=== PATIENT | female | born 1980 ===

== ENCOUNTER 2018-11-27 06:43 | Day surgery (SDC) | payer OTHER ==
[2018-11-24 10:53] VITALS: BMI 24.2
[2018-11-27] MEDS ORDERED: Bupivacaine 0.5% Inj(30mL) ONE (07:31)
[2018-11-27] MEDS ORDERED: Lactated Ringer's 1,000 ML IV ONE ×2 (08:00→08:40)
[2018-11-27] MEDS ORDERED: Lidocaine 2% MPF (5 ml) Inj ONE (08:19)
[2018-11-27] MEDS ORDERED: Propofol 10 mg/ml Inj (20 ML) ONE (08:19)
[2018-11-27] MEDS ORDERED: Midazolam 2 MG/2 ML VIAL ONE (08:19)
[2018-11-27] MEDS ORDERED: Rocuronium 10 mg/ml (5 ml) ONE (08:20)
[2018-11-27] MEDS ORDERED: HYDROmorphone 0.5 mg/0.5 ml ISec IVP PRN (09:48)
[2018-11-27 09:57] LABS: BASO % 0.5 % (0.0-2.0); EOS % 0.7 % (0.0-4.0); HEMOGLOBIN 12.5 g/dL (12.0-16.0); LYMPH # 0.8 K/uL (1.0-4.3); LYMPH % 16.3 % (20.0-40.0); MEAN CELL VOLUME 96.5 fl (81.0-99.0); MEAN CORPUSCULAR HEMOGLOBIN 32.7 pg (27.0-31.0); MEAN CORPUSCULAR HGB CONC 33.9 g/dL (33.0-37.0); MEAN PLATELET VOLUME 10.8 fl (7.2-11.7); MONO # 0.3 K/uL (0.0-0.8); MONO % 7.1 % (0.0-10.0); NEUT # 3.5 K/uL (1.8-7.0); NEUT % 75.4 % (50.0-75.0); RBC 3.81 Mil/uL (3.80-5.20); WHITE BLOOD COUNT 4.7 K/uL (4.8-10.8)
[2018-11-27] MEDS ORDERED: Lactated Ringer's 1,000 ML IV SCH (10:00)
--- NOTE | 2018-11-27 10:38 | CP.SDSHP ---
Same Day Surgery H & P - Allergies Allergies: Allergies No Known Allergies Allergy (Verified 11/27/18 07:16) - Physical Exam Vital Signs: Vital Signs 11/27/18 11/27/18 11/27/18 07:37 09:45 10:00 Temperature 98.9 F 96.6 F L 96.9 F L Pulse Rate 65 85 58 L Respiratory 18 18 18 Rate Blood Pressure 128/65 123/72 113/63 O2 Sat by Pulse 99 100 100 Oximetry 11/27/18 10:10 Temperature 97.1 F L Pulse Rate 58 L Respiratory 18 Rate Blood Pressure 110/69 O2 Sat by Pulse 100 Oximetry Short Stay Discharge - Short Stay Discharge Admitting Diagnosis/Reason for Visit: N83.291/ Z30.2/ Referrals: Eric Duncan MD [Primary Care Provider] - Progress Note/Discharge Note with Instructions: Patient doing well pain well controlled Patient cleared for discharge Prescription for Percocet and Motrin provided Patient to follow-up in the office in 1 week
--- NOTE | 2018-11-27 12:44 | OP ---
PROCEDURE DATE: 11/27/2018 PREOPERATIVE DIAGNOSES: Right ovarian complex cyst. Intrauterine at 39 weeks and history of previous delivery. POSTOPERATIVE DIAGNOSIS: Right ovarian complex cyst. OPERATION PERFORMED: Bilateral tubal ligation. SURGEON: Hilary Shepherd MD CIGAR HEAD PUNCHER: Katie Garcia MD TYPE OF ANESTHESIA: General. ANESTHESIA ADMINISTERED BY: Dr. Carpenter. ESTIMATED BLOOD LOSS: Minimal. URINE OUTPUT: Marrero catheter put out approximately 50 mL. INTRAVENOUS FLUID INTAKE: The patient received 1 L of D5 LR intraoperatively. COMMENTS: Preoperatively, the patient was noted to have a 4 cm complex cyst. The patient was brought to the OR for the indication of ovarian cystectomy. The patient also desired tubal ligation. Upon initial survey of the abdomen, both ovaries appeared normal. There were pictures taken for documentation and we proceeded with the bilateral tubal ligation. DESCRIPTION OF PROCEDURE: After informed consent was obtained, the patient was taken to the operating room where she was given general anesthesia. She was then placed in the [place] stirru, prepped and draped in the normal sterile fashion. Attention was then turned to the vagina where a weighted speculum was inserted in the vagina. The cervix was visualized and grasped with a single-tooth tenaculum. The cervix was then gently dilated and the HUMI uterine manipulator was inserted in the uterine cavity as a means to manipulate the uterus. Attention was then turned to the urethra where Marrero catheter was inserted to monitor the patient's urinary output. I then proceeded to the abdomen where an 8-mm incision was made in the umbilical fold. A Veress needle was then introduced in the abdominal cavity and the abdomen was insufflated to 15 mmHg. An 8-mm robotic port was introduced into the abdominal cavity. Placement was confirmed with the laparoscope. The abdomen was then surveyed with the findings noted above. We then proceeded to put an 8-mm port in the left lower quadrant approximately 3 cm superior to the left anterior iliac crest. Marcaine was infused, and an 8-mm incision was made and robotic port was introduced under direct visualization. The LigaSure device was then used. We identified the left ovarian tube. It was serially coagulated and transected with LigaSure. A similar procedure was performed on the left. All instruments were then removed from the abdomen. The skin incisions repaired with 3-0 Biosyn and Dermabond. All sponge, lap, needle, and instrument counts were correct x2, and the patient was taken to recovery room in awake and stable condition. Dr. Garcia was the cleaner assistant. She helped creating exposure, helped with visibility and closure of the patient. Hilary Shepherd MD
[2018-11-27] MEDS ORDERED: Oxycodone/Acetaminophen 5/325 mg Tab PO PRN (12:45)
[2018-11-27] MEDS ORDERED: Oxycodone/Acetaminophen 5/325 mg Tab PO ONE (13:01)
[2018-11-27 16:56] VITALS: RESP 18
[2018-11-27 16:57] VITALS: BP 100/60; PULSE 65; TEMP 97.8; O2SAT 99
== END 2018-11-27 14:10 | disposition home or self-care (01) ==
LOC: H.OPSURG 06:43
PROVIDERS: ATTEND Obstetrics & Gynecology Gynecology
DX: N83.291 Other ovarian cyst, right side (principal); Z30.2 Encounter for sterilization
CPT/HCPCS: 36415; 58670; 85025; 86850; 86900; J0690; J1885; J2250; J2405; J2704; J2765; J3010; J7030; J7120